=== PATIENT | female | born 1995 | race Caucasian/White ===

== ENCOUNTER 2018-12-28 00:49 | Emergency (ER) | payer SELFPAY ==
[~2018-12-28] VITALS: Ht 162.6 cm; Wt 83.9 kg
[2018-12-28 01:01] VITALS: Ht 162.6 cm; Wt 83.9 kg
[2018-12-28 01:28] LABS: BASOPHIL % 0.3 % (0-2); PLATELET COUNT 256 x10^3mcL (130-400); RED CELL DISTRIBUTION WIDTH 14.1 % (11.5-14.5)
[2018-12-28 01:30] VITALS: BP 100/54
[2018-12-28 01:36] LABS: CALCIUM 8.6 mg/dL (8.5-10.1); CARBON DIOXIDE 25.9 mmol/L (21-32); CHLORIDE SERUM 104 mmol/L (98-107); CREATININE SERUM 0.8 mg/dL (0.6-1.0); GFR1 > 60 mL/min; GLUCOSE SERUM 104 mg/dL (74-106); POTASSIUM SERUM 3.9 mmol/L (3.5-5.1); SODIUM SERUM 139 mmol/L (136-145)
[2018-12-28 01:41] LABS: ALKALINE PHOSPHATASE 58 U/L (46-116); ALT/SGPT 18 U/L (14-59); AST/SGOT 11 U/L (15-37); BILIRUBIN TOTAL 0.48 mg/dL (0.20-1.00); LIPASE 91 IU/L (73-393); TOTAL PROTEIN, SERUM 7.6 g/dL (6.4-8.2)
== END 2018-12-28 03:13 | disposition home or self-care (01) ==
LOC: ED 00:49
PROVIDERS: Emergency Medicine
DX: K80.50 Calculus of bile duct without cholangitis or cholecystitis without obstruction (principal); Z88.8 Allergy status to other drugs, medicaments and biological substances; Z91.012 Allergy to eggs; Z91.018 Allergy to other foods
CPT/HCPCS: J2270; J2405; J7030; Q0092

== ENCOUNTER 2019-04-04 23:31 | Inpatient (IN) | payer MEDICAID ==
[~2019-04-04] VITALS: Ht 162.6 cm; Wt 84.5 kg
[2019-04-04 23:38] VITALS: Ht 162.6 cm; Wt 84.5 kg
--- NOTE | 2019-04-04 23:43 | NUR ---
PT PRESENTS TO ED WITH C/C SHARP/BURNING RUQ PAIN THAT RADIATES TO RIGHT MID BACK. +NAUSEA. PAIN BEGAN AFTER EATING CHICKEN SOUP. 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 PT AAOX4. RESP E/U. IN OBVIOUS DISCOMFORT. [facility] MEDICATED WITH 4MG ZOFRAN IVP TO LAC 20G PIV. PAIN IS CURRENTLY 10/10 AND PATIENT DENIES NAUSEA AT THIS TIME. CONNECTED TO FULL MONITOR. DR BROWN AT BEDSIDE FOR MSE.
--- NOTE | 2019-04-04 23:56 | NUR ---
PATIENT PROVIDED WITH URINE CUP AND INSTRUCTED TO PROVIDE SAMPLE MODESTA.
--- NOTE | 2019-04-04 23:56 | NUR ---
PATIENT INSTRUCTED TO PROVIDE URINE SAMPLE MODESTA.
--- NOTE | 2019-04-05 00:10 | NUR ---
PT STATES UNABLE TO PROVIDE URINE SAMPLE AT THIS TIME, DENIES . PT VERBALIZES UNDERSTANDING OF ALL DANGERS AND RISKS OF RECIEVING MEDICATION IF AND STATES OKAY TO RECIEVE MEDICATION DESPITE NOT HAVING URINE SAMPLE AT THIS TIME.
--- NOTE | 2019-04-05 00:22 | NUR ---
US AT BEDSIDE.
[2019-04-05 00:30] LABS: BASOPHIL % 0.8 % (0-2); PLATELET COUNT 307 x10^3mcL (130-400); RED CELL DISTRIBUTION WIDTH 13.8 % (11.5-14.5)
[2019-04-05 00:36] LABS: CARBON DIOXIDE 25.1 mmol/L (21-32); CHLORIDE SERUM 103 mmol/L (98-107); CREATININE SERUM 0.7 mg/dL (0.6-1.0); GFR1 > 60 mL/min; GLUCOSE SERUM 108 mg/dL (74-106); POTASSIUM SERUM 3.3 mmol/L (3.5-5.1); SODIUM SERUM 140 mmol/L (136-145)
[2019-04-05 00:43] LABS: ALKALINE PHOSPHATASE 55 U/L (46-116); ALT/SGPT 19 U/L (14-59); AST/SGOT 14 U/L (15-37); BILIRUBIN TOTAL 0.4 mg/dL (0.20-1.00); LIPASE 78 IU/L (73-393); TOTAL PROTEIN, SERUM 7.8 g/dL (6.4-8.2)
--- NOTE | 2019-04-05 01:01 | NUR ---
PT AMBULATED TO AND FROM RESTROOM WITH STEADY GAIT WITH NO INCIDENCES NOTED. PT A&0X4, SPEAKING FULL CLEAR SENTENCES. PT BREATHING EVEN AND UNLABORED. FULL CM AND [address] WILL CONTINUE TO MONITOR.
--- NOTE | 2019-04-05 01:21 | NUR ---
PT REPORTS "THERES STILL DISCOMFORT BUT IT FEELS WAY BETTER". PT APPEARS CALM AT THIS TIME, BLANKET PROVIDED FOR COMFORT. WILL CONTINUE TO MONITOR.
--- NOTE | 2019-04-05 01:37 | NUR ---
MD BROWN AT BEDSIDE SPEAKING WITH PT ABOUT PLAN OF CARE
[2019-04-05 01:38] LABS: microscopic required? NO
--- NOTE | 2019-04-05 01:38 | NUR ---
REPORT GIVEN TO VERA PICKETT AT EXT [id number]
--- NOTE | 2019-04-05 01:58 | NUR ---
PT TRANSFERED TO [facility] AT THIS TIME IN NAD. PT A&0X4, SPEAKING FULL CLEAR SENTENCES. PT BREATHING EVEN AND UNLABORED. PT VERBALIZED UNDERSTANDING OF PLAN OF CARE. IV INTACT AND FLUSHES WITH NO COMPLICATIONS. PT TRANSPORTED TO [facility] VIA WHEELCHAIR BY ALFREDO CURRAN. VERA RN TO ASSUME CARE OF PT AT THIS TIME.
[2019-04-05 02:06] LABS: MAGNESIUM 1.8 mg/dL (1.8-2.4); PHOSPHOROUS 1.5 mg/dL (2.5-4.9)
[2019-04-05 02:19] LABS: FREE T4 1.1 ng/dL (0.76-1.46); FREE THYROXINE INDEX 3.6 ug/dL (1.4-4.5); T4(THYROXINE) 10.1 ug/dL (4.7-13.3)
[2019-04-05 02:23] LABS: urine erythrocyte NEGATIVE (NEGATIVE)
--- NOTE | 2019-04-05 02:32 | NUR ---
RECEIVED PT FROM ER VIA WHEELCHAIR ACCOMPANIED BY THE ER STAFF. PT IS A/A/O X4. DENIES DIZZINESS AND HEADACHE. BREATH SOUNDS CLEAR. BREATHING EVEN AND UNLABORED ON ROOM AIR, SPO2 100%. DENIES CHEST PAIN AND PRESSURE. BOWEL SOUNDS ACTIVE. NO C/O N/V. C/O ABDOMINAL PAIN, 5/10 PAIN LEVEL. GAVE PT NORCO PO. PT TOLERATED IT WELL. DR. LOPEZ AT BEDSIDE SPEAKING WITH THE PT. IV INTACT ON THE LAC. MADE PT COMFORTABLE. PLACED CALL LIGHT WITH IN REACH. WILL CONTINUE TO MONITOR.
[2019-04-05 02:37] VITALS: BP 96/64
[2019-04-05 02:37] LABS: AMPHETAMINE QUAL UR NONE DETECTED (See below)
[2019-04-05 03:01] LABS: T3 TOTAL 1.27 ng/mL
--- NOTE | 2019-04-05 06:37 | NUR ---
PT RESTING WITH EYES CLOSED. EASILY AROUSABLE WITH VERBAL STIMULI. NO C;O PAIN THUS FAR. IV INTACT. MADE PT COMFORTABLE. WILL ENDORSE TO THE AM NURSE ACCORDINGLY.
[2019-04-05 07:12] LABS: BASOPHIL % 0.1 % (0-2); PLATELET COUNT 295 x10^3mcL (130-400); RED CELL DISTRIBUTION WIDTH 13.9 % (11.5-14.5)
[2019-04-05 07:24] LABS: CHLORIDE SERUM 107 mmol/L (98-107); CREATININE SERUM 0.7 mg/dL (0.6-1.0); GFR1 > 60 mL/min; GLUCOSE SERUM 91 mg/dL (74-106); PHOSPHOROUS 4.3 mg/dL (2.5-4.9); POTASSIUM SERUM 4.2 mmol/L (3.5-5.1); SODIUM SERUM 140 mmol/L (136-145)
--- NOTE | 2019-04-05 07:25 | NUR ---
RECEIVED PT IN BED, AWAKE, ALER ORIENTED X 4. VERBALLY RESPONSIVE, AMBULATORY. ON ROOM AIR, BILAT LUNGS CTA. NO C/O SOB. NO C/O ABD PAIN, NO C/O N/V/D. IV SL NOTED ON LAC 20G. OR NURSE ASSISTING PT W/ CHLORHEXIDINE WIPES FOR SURGERY. CONSENT SIGNED.
--- NOTE | 2019-04-05 07:35 | NUR ---
PT TAKEN TO OR FOR LAPAROSCOPIC CHOLECYSTECTOMY.
[2019-04-05 07:39] LABS: BILIRUBIN DIRECT 0.1 mg/dL (0.0-0.2); BILIRUBIN TOTAL 0.4 mg/dL (0.20-1.00); TOTAL PROTEIN, SERUM 6.7 g/dL (6.4-8.2)
[2019-04-05 07:40] LABS: ALBUMIN 3.3 g/dL (3.4-5.0)
--- NOTE | 2019-04-05 10:36 | NUR ---
RECEIVED PT FROM 0R S/P LAP CHOLECYSTECTOMY, NOTED TO BE DROWSY, BUT ABLE TO TRANSFER TO BED WITH MINIMAL ASSISTANCE. 4 INCISIONS WITH SUTURES AND DERMABOND OPEN TO AIR. C/O PAIN ON ABDOMINAL AREA 07/07, WAS GIVEN PAIN MED PRIOR TO RETURN. V/S STABLE BP 106/67, HR 92, T 97.3, RR 14. 02 95%. EDUCATED PT TO CALL FOR DISCOMFORT OR ANY CONCERN, CALL LIGHT WITHIN REACH. CHART RECEIVED. WILL CONTINUE TO MONITOR PT.
--- NOTE | 2019-04-05 11:42 | NUR ---
PT C/O PAIN ON ABDOMINAL AREA 8/10 ON PAIN SCALE. GIVEN MORPHINE 2MG IVP. WILL CONT TOMONITOR.
[2019-04-05 12:37] VITALS: BP 101/63
--- NOTE | 2019-04-05 12:50 | NUR ---
PT REPORTS DECREASED PAIN, 3/10. ASSISTED TO THE RESTROOM, HAD APPROX 50ML UO. PT ON FULL LIQUID PER MD.
[2019-04-05 12:55] VITALS: BP 111/75
--- NOTE | 2019-04-05 15:13 | NUR ---
C/O NAUSEA AND ABDOMINAL PAIN /10, GIVEN ZOFRAN 4MG IVP AND ACETAMINOPHEN 650MG PO. WILL CONT TO MONITOR.
--- NOTE | 2019-04-05 15:17 | NUR ---
Discount pharmacy card and list to low cost medical clinics given to patient by Silvia Quintero.
--- NOTE | 2019-04-05 16:45 | NUR ---
PATIENT AMBULATED TO BATHROOM WITH ASSISTANCE. VOIDED 300 ML. C/O SLIGHT NAUSEA DESPITE IV ZOFRAN. TAKING ONLY SMALL AMOUNTS OF PO LIQUIDS. CONTACTED DR GALVEZ. SHE WILL ORDER IV FLUIDS FOR PATIENT.
[2019-04-05 16:48] VITALS: BP 120/78
--- NOTE | 2019-04-05 18:39 | NUR ---
PT IN BED, SLEEPING. NO C/O DISCOMFORT AT THIS TIME.
--- NOTE | 2019-04-05 19:30 | NUR ---
PT IS A/O X4. MED SURG. DENIES ANY CHEST PAIN OR PRESSURE. PULSES ARE PRESENT. NO EDMEA NOTED. LUNGS CLEAR IN ALL FEILDS. ON RA, DENIES ANY SOB. EQUAL CHEST RISE AND FALL. NO SIGN OF RESP DISTRESS. BOWEL SOUNDS ARE ACTIVE. 4 INCISIONS NOTED ON ABD S/P LAP DIAMOND. SUTURES WITH DERMABOND, CAROLYN. INTACT AND CLEAN. NO DRAINAGE NOTED. PT C/O MILD DISCOMFORT AT SITE, LIGHT BURINING. OFFERED PAIN MEDICATION AND PT REFUSED AT THIS TIME. VOIDS FREELY. IV ON LAC INTACT AND PATENT. BED IS AT LOWEST SETTING. CALL LIGHT WITHIN REACH. WILL CONTINUE TO MONITOR.
[2019-04-05 20:43] VITALS: BP 101/71
--- NOTE | 2019-04-05 22:45 | NUR ---
PT C/O NAUSEA. PRN ZOFRAN GIVEN PER EMAR. DENIES ANY PAIN AT THIS TIME.
--- NOTE | 2019-04-06 01:56 | NUR ---
PT AMBULATED TO THE BATHROOM WITH A SLOW GAIT. TOLERATING WELL. COMPLAINED OF 5/10 PAIN ON INCISIONS. PAIN MEDICATION GIVEN PER EMAR. PT MADE COMFORTABLE IN BED. SCD RECONNECTED. BED IS AT LOWEST SETTING. CALL LIGHT WITHIN REACH. WILL CONTINUE TO MONTIOR.
[2019-04-06 04:36] VITALS: BP 112/78
--- NOTE | 2019-04-06 06:18 | NUR ---
PT IS RESTING IN BED. DENIES ANY PAIN AT THIS TIME. JUST STATES SHE FEELS SORE BUT NO PAIN. NO ACUTE EVENT OCCURED DURING SHIFT. BED IS AT LOWEST SETTING. CALL LIGHT WITHIN REACH. WILL ENDORSE TO AM NURSE.
[2019-04-06 07:03] LABS: BASOPHIL % 0.3 % (0-2); PLATELET COUNT 260 x10^3mcL (130-400); RED CELL DISTRIBUTION WIDTH 13.9 % (11.5-14.5)
[2019-04-06 07:16] LABS: CALCIUM 8.4 mg/dL (8.5-10.1); CARBON DIOXIDE 25.3 mmol/L (21-32); CHLORIDE SERUM 105 mmol/L (98-107); CREATININE SERUM 0.7 mg/dL (0.6-1.0); GFR1 > 60 mL/min; GLUCOSE SERUM 88 mg/dL (74-106); MAGNESIUM 1.8 mg/dL (1.8-2.4); PHOSPHOROUS 3.7 mg/dL (2.5-4.9); POTASSIUM SERUM 3.9 mmol/L (3.5-5.1); SODIUM SERUM 140 mmol/L (136-145)
[2019-04-06 08:50] VITALS: BP 110/74
[2019-04-06 12:07] VITALS: BP 131/68
--- NOTE | 2019-04-06 13:00 | NUR ---
PT TOLERATING REGULAR DIET. PT DENIES ANY NAUSEA OR ABD PAIN. PT AMBULATING OFTEN. PT BURPING, PT NOT PASSING GAS BUT STATES THAT SHE FEELS THOUGH SHE NEEDS TO AND NO BM SINCE SURGERY. WILL CONTINUE TO MONITOR.
--- NOTE | 2019-04-06 15:57 | NUR ---
PT C/O ABD SX PAIN 09/06 MEDICATED WITH NORCO PER EMAR. CALL LIGHT IN REACH NEEDS ATTENDED TO.
[2019-04-06 16:07] VITALS: BP 105/71
--- NOTE | 2019-04-06 16:25 | NUR ---
SHON GRIJALVA CALLED REGARDING DR. BANEGAS NOTE OK TO D/C AFTER LUNCH RECEIVED OK TO D/C.
--- NOTE | 2019-04-06 18:58 | NUR ---
PT AWAKE, ALERT AND ORIENTED AT TIME OF DISCHARGE. PT LOOKS TO BE IN NO ACUTE DISTRESS AND DENIES ANY PAIN AT TIME OF DISCHARGE. PT DISCHARGED HOME AND WENT TO LOBBY VIA WHEELCHAIR ACCOMPANIED BY NURSE WITH BELONGINGS IN HAND. PROVIDED PT WITH EDUCATION AND PRESCRIPTION, PT VERBALIZED UNDERSTANDING. INFORMED PT OF FOLLOW UP APPOINTMENT AND THE IMPORTANCE TO ATTEND, PT VERBALIZED UNDERSTANDING. INFORMED PT OF S/S OF INFECTION OF ABD INCISION SITE AND THINGS TO BE AWARE OF, PT VERBALIZED UNDERSTANDING. IV REMOVED AND CATHETER FULLY INTACT. ALL QUESTIONS AND CONCERNS ADDRESSED.
== END 2019-04-06 18:58 | disposition home or self-care (01) | DRG 263 ==
LOC: ED 23:31 → MU 04-05 01:20 → ED 04-05 01:20 → MU 04-05 01:58
PROVIDERS: Emergency Medicine; Surgery; ADMIT Internal Medicine
PROC: 0FT44ZZ Resection of Gallbladder, Percutaneous Endoscopic Approach (ICD-10-PCS; principal; 2019-04-05 08:00)
DX: K80.20 Calculus of gallbladder without cholecystitis without obstruction (principal); E83.39 Other disorders of phosphorus metabolism; E87.6 Hypokalemia; Z68.30 Body mass index [BMI] 30.0-30.9, adult
CPT/HCPCS: 84439; 94150; C1758; C1887; G0378; J0330; J0690; J2001; J2175; J2250; J2270; J2405; J2704; J3010; J3490; J7030; J7120; Q0092